=== PATIENT | female | born 1970 | race Caucasian/White ===

== ENCOUNTER 2018-07-01 05:05 | Emergency (ER) | payer MEDICAID, OTHER ==
[~2018-07-01] VITALS: Ht 160 cm; Wt 51.6 kg
[2018-07-01 05:20] VITALS: Ht 160 cm; Wt 51.6 kg
[2018-07-01] MEDS ORDERED: ONDANSETRON 4 MG INJ IV STA (06:20)
[2018-07-01] MEDS ORDERED: SOD CHLORIDE 0.9% 1,000 ML IV STA (06:20)
[2018-07-01] MEDS ORDERED: MECLIZINE 12.5 MG TAB PO ONE (06:30)
[2018-07-01] MEDS ORDERED: MECL12.574 PO (07:52)
--- NOTE | 2018-07-01 07:54 | ERD ---
ER Documentation Chief Complaint Chief Complaint c/o anxiety, dizziness since last night. denies pain HPI Patient is a 40-year-old female with no medical problems who presents with dizziness. The symptoms started last night. She felt like the room was spinning. She felt cold. She had headache and nausea. She tried ibuprofen. The patient had an episode of vomiting this morning. She is currently on her period. Upon review of medical records this is the patient's first visit to the emergency department. She does not currently have a primary doctor. ROS All systems reviewed and are negative except as per history of present illness. Medications Home Meds Active Scripts Meclizine Hcl* (Antivert*) 12.5 Mg Tab, 25 MG PO Q6H PRN for DIZZINESS, #20 TAB Prov:ANA PAULA DRAKE MD 07/01/18 Allergies Allergies: Coded Allergies: No Known Drug Allergies (Verified Allergy, Unknown, 07/01/18) PMhx/Soc Medical and Surgical Hx: pt denies Medical Hx, pt denies Surgical Hx Hx Alcohol Use: No Hx Substance Use: No Hx Tobacco Use: No Smoking Status: Never smoker FmHx Family History: diabetes Physical Exam Vitals Vital Signs Date Temp Pulse Resp B/P (MAP) Pulse Ox O2 O2 Flow FiO2 Time Delivery Rate 07/01/18 68 18 138/78 98 Room Air 08:09 (98) 07/01/18 98.1 70 18 135/81 98 05:20 (99) Physical Exam Const: No acute distress Head: Atraumatic Eyes: Normal Conjunctiva ENT: Normal External Ears, Nose and Mouth. Neck: Full range of motion. No meningismus. Resp: Clear to auscultation bilaterally Cardio: Regular rate and rhythm, no murmurs Abd: Soft, non tender, non distended. Normal bowel sounds Skin: No petechiae or rashes Back: No midline or flank tenderness Ext: No cyanosis, or edema Neur: Awake and alert Psych: Normal Mood and Affect Result Diagram: 07/01/18 0640 07/01/18 0640 Results 24 hrs Laboratory Tests Test 07/01/18 06:40 White Blood Count 6.7 10^3/ul Red Blood Count 4.37 10^6/ul Hemoglobin 12.9 g/dl Hematocrit 39.5 % Mean Corpuscular Volume 90.4 fl Mean Corpuscular Hemoglobin 29.5 pg Mean Corpuscular Hemoglobin Concent 32.7 g/dl Red Cell Distribution Width 12.7 % Platelet Count 218 10^3/UL Mean Platelet Volume 10.8 fl Immature Granulocytes % 0.300 % Neutrophils % 70.8 % Lymphocytes % 16.3 % Monocytes % 8.2 % Eosinophils % 4.0 % Basophils % 0.4 % Nucleated Red Blood Cells % 0.0 /100WBC Immature Granulocytes # 0.020 10^3/ul Neutrophils # 4.8 10^3/ul Lymphocytes # 1.1 10^3/ul Monocytes # 0.6 10^3/ul Eosinophils # 0.3 10^3/ul Basophils # 0.0 10^3/ul Nucleated Red Blood Cells # 0.0 10^3/ul Sodium Level 140 mmol/L Potassium Level 4.2 mmol/L Chloride Level 109 mmol/L Carbon Dioxide Level 27 mmol/L Anion Gap 4 Blood Urea Nitrogen 13 mg/dl Creatinine 0.58 mg/dl Est Glomerular Filtrat Rate mL/min > 60 mL/min Glucose Level 108 mg/dl Calcium Level 9.1 mg/dl Troponin I < 0.012 ng/ml Current Medications Medications Dose Sig/Kristian Start Time Status Last (Trade) Ordered Route PRN Stop Time Admin Dose Reason Admin Sodium 1,000 ml @ Q1H STAT 07/01/18 DC 07/01/18 Chloride 1,000 mls/hr IV 06:20 07/01/18 06:52 07:19 Ondansetron 4 mg ONCE STAT 07/01/18 DC 07/01/18 HCl (Zofran IV 06:20 07/01/18 06:52 Inj) 06:21 Meclizine 25 mg ONCE ONCE 07/01/18 DC 07/01/18 HCl PO 06:30 07/01/18 06:52 (Antivert) 06:31 Procedures/MDM EKG read by me: Rate/Rhythm: Regular rate and rhythm at a rate of 65 Intervals: Normal Impression: No evidence of ischemia or arrhythmia Patient is a 48-year-old female who presents with dizziness. Neurologic exam is normal. I believe the patient likely has acute vertigo. Laboratory studies are normal. I doubt anemia or serious electrolyte abnormality. The patient will be discharged with a prescription for meclizine. The patient can return for any worsening symptoms. Departure Diagnosis: Primary Impression: Vertigo Additional Impression: Dizziness Condition: Fair Patient Instructions: Vertigo, Unspecified [facility] Usted se lima hecho un examen mdico de control que le indica que no est en [place] condicin que requiera tratamiento urgente en el Departamento de Emergencia. Un estudio ms profundo y el tratamiento de youssef condicin pueden esperar sin ningn riesgo hasta que usted sea atendida/o en el consultorio de youssef mdico o ash[place]osh cl alvaro. Es responsabilidad suya arreglar ashutosh iva para el seguimiento del robert. MANEJO DE CONDICIONES NO URGENTES EN EL FUTURO 1) Si usted tiene un mdico de atencin primaria: Usted debera llamar a youssef mdico de atencin primaria antes de venir al departamento de emergencia. Despus de las horas de consultorio, youssef doctor o youssef asociado/a est disponible por telfono. El mdico o enfermero de marichuy en el servicio telefnico puede asesorarle por linda medio para atender el problema, o robert contrario se puede programar ash[place]osh iva. 2) Si usted no tiene un mdico de atencin primaria: Llame al mdico o clnica de referencia que aparece abajo graciela las horas de consultorio para hacer [place] iva para que le vean. CLINICAS: [facility] [phone] [facility] [phone] [facility] [phone] [facility] [phone] [facility] [facility] [place] [phone] [facility]. [phone] [address] Additional Instructions: Llame al doctor nombrado abajo (Referral Sources) MAANA y ailyn ashutosh IVA PARA DENTRO DE ASHUTOSH SEMANA. Dgale a la secretaria que nosotros le instruimos hacer esta iva.Avise o llame si youssef condicin se empeora antes de la iva. ANA PAULA DRAKE MD Jul 01, 2018 07:54
[2018-07-01 08:09] VITALS: BP 138/78; PULSE 68; RESP 18
== END 2018-07-01 08:10 | disposition home or self-care (01) ==
LOC: E/R 05:05
DX: R42 Dizziness and giddiness (principal); R11.2 Nausea with vomiting, unspecified; R40.2142 Coma scale, eyes open, spontaneous, at arrival to emergency department; R40.2362 Coma scale, best motor response, obeys commands, at arrival to emergency department; R40.2252 Coma scale, best verbal response, oriented, at arrival to emergency department
CPT/HCPCS: 36415; 80048; 84484; 85025; 93005; 96374; J2405; J7030; Z7502; Z7610